=== PATIENT | female | born 1950 | race African-American/Black ===

== ENCOUNTER 2017-01-02 06:39 | Day surgery (SDC) | payer MEDICARE, OTHER ==
[~2017-01-02] VITALS: Ht 147.3 cm; Wt 54.5 kg
[~2017-01-02 06:39] MED LIST: CEPH500 PO; ESCI10TA PO; IBUP-1547 PO; LISI-618 PO; SODIUM CHLORIDE 0.9% 1,000 ML IV ONE; ZOLP5 PO
[2017-01-02] MEDS ORDERED: LIDOCAINE HCL 4% 50 ML SOLUTION TP ONE (06:40)
[2017-01-02] MEDS ORDERED: BENZOCAINE 20% 50 MCG/SPRAY 57 GM TP ONE (06:40)
[2017-01-02] MEDS ORDERED: ALBUTEROL SULFATE 2.5 MG/0.5 ML NEB SOLUTION NEB ONE (06:40)
[2017-01-02] MEDS ORDERED: LIDOCAINE HCL 2% 30 ML JELLY TP ONE (06:40)
[2017-01-02] MEDS ORDERED: SODIUM CHLORIDE 0.9% 1,000 ML IV ONE (06:47)
[2017-01-02] MEDS ORDERED: CLON.1 PO (07:28)
[2017-01-02] MEDS ORDERED: FentaNYL CITRATE-PF 100 MCG/2 ML VIAL ONE (07:41)
[2017-01-02] MEDS ORDERED: MIDAZOLAM HCL 2 MG/2 ML VIAL ONE (07:41)
[2017-01-02] MEDS ORDERED: MethylPREDNISolone SOD SUCC 125 MG/2 ML VIAL IVP ONE (09:15)
[2017-01-02] MEDS ORDERED: MethylPREDNISolone SOD SUCC 125 MG/2 ML VIAL ONE (09:29)
[2017-01-02] MEDS ORDERED: OXYGEN THERAPY IH SCH (20:00)
== END 2017-01-02 10:40 | disposition home or self-care (01) ==
LOC: SURGERY 06:39
PROVIDERS: ATTEND Internal Medicine Critical Care Medicine
DX: J84.9 Interstitial pulmonary disease, unspecified (principal); J38.4 Edema of larynx; R51 Headache; F41.9 Anxiety disorder, unspecified
CPT/HCPCS: 31623; 31624; 71010; 87015 ×2; 87070; 87101; 87205; 87220; 88108; 88312; 94640; J2250; J2930; J3010; J7030

== ENCOUNTER 2018-06-08 02:57 | Emergency (ER) | payer MEDICARE, OTHER ==
[~2018-06-08] VITALS: Ht 149.9 cm; Wt 55.5 kg
[~2018-06-08 02:57] MED LIST changes: -CEPH500 PO; +CLON-570 PO; -ESCI10TA PO; -IBUP-1547 PO; -LISI-618 PO; -SODIUM CHLORIDE 0.9% 1,000 ML IV ONE; -ZOLP5 PO
[2018-06-08] MEDS ORDERED: CLON.2 PO (03:17)
[2018-06-08] MEDS ORDERED: LISI40TA4 PO (03:17)
[2018-06-08] MEDS ORDERED: KETOROLAC TROMETHAMINE 60 MG/2 ML VIAL IM ONE (04:30)
[2018-06-08] MEDS ORDERED: METHOCARBAMOL 750 MG TABLET PO ONE (04:30)
[2018-06-08 05:45] VITALS: BP 194/91
== END 2018-06-08 07:14 | disposition home or self-care (01) ==
LOC: EMS 02:59
DX: S13.4XXA Sprain of ligaments of cervical spine, initial encounter (principal); S33.5XXA Sprain of ligaments of lumbar spine, initial encounter; I10 Essential (primary) hypertension; F11.90 Opioid use, unspecified, uncomplicated; F17.210 Nicotine dependence, cigarettes, uncomplicated; Z79.899 Other long term (current) drug therapy; V43.62XA Car passenger injured in collision with other type car in traffic accident, initial encounter; Y93.89 Activity, other specified; Y92.89 Other specified places as the place of occurrence of the external cause; Y99.8 Other external cause status
CPT/HCPCS: 72040; 72070; 72100; 96372; 99283; 99406; J1885

== ENCOUNTER 2018-08-03 00:47 | Emergency (ER) | payer MEDICARE, OTHER ==
[~2018-08-03] VITALS: Ht 149.9 cm; Wt 55.5 kg
[~2018-08-03 00:47] MED LIST changes: -CLON-570 PO; +CLON.2 PO; +LISI40TA4 PO
[2018-08-03 01:23] VITALS: BP 161/111
[2018-08-03] MEDS ORDERED: ALBUTEROL SULFATE 2.5 MG/0.5 ML NEB SOLUTION NEB ONE (02:15)
[2018-08-03] MEDS ORDERED: IPRATROPIUM BROMIDE 0.5 MG/2.5 ML NEB SOLUTION NEB ONE (02:15)
[2018-08-03 03:02] LABS: BASOPHILS % (AUTO) 0.9 % (0.0-2.0); EOSINOPHILS % (AUTO) 4.3 % (1.0-6.0); HEMATOCRIT 37.9 % (36-46); HEMOGLOBIN 12.4 g/dL (12.0-16.0); LYMPHOCYTES # (AUTO) 2.3 K/uL (1.0-4.8); LYMPHOCYTES % (AUTO) 27.3 % (22.0-44.0); MEAN CORPUSCULAR HEMOGLOBIN 25.7 pg (26.0-34.0); MEAN CORPUSCULAR HGB CONC 32.8 G/dL (31.0-37.0); MEAN CORPUSCULAR VOLUME 78 fL (80-100); MONOCYTES # (AUTO) 0.4 K/uL (0.1-1.0); MONOCYTES % (AUTO) 5.3 % (2.0-9.0); NEUTROPHILS # (AUTO) 5.3 K/uL (1.8-7.7); NEUTROPHILS % (AUTO) 62.2 % (40.0-70.0); PLATELET COUNT (AUTO) 198 K/uL (150-450); RED BLOOD CELL COUNT(AUTO) 4.84 MIL/uL (4.00-5.20)
[2018-08-03 03:06] LABS: ANION GAP 11 mmol/L (8-16); CALCIUM, TOTAL 8.8 mg/dL (8.8-10.5); CARBON DIOXIDE 27 mmol/L (22-29); CHLORIDE 106 mmol/L (98-107); CREATININE 1.06 mg/dL (0.60-1.30); GLOMERULAR FILTR. RATE CALC > 60 mL/min (>60); GLUCOSE,RANDOM 125 mg/dL (70-110); POTASSIUM 3.5 mmol/L (3.5-5.1); SODIUM SERUM 144 mmol/L (136-145); UREA NITROGEN, BLOOD 13 mg/dL (7-18)
[2018-08-03 03:12] LABS: ALANINE AMINOTRANSFERASE 13 U/L (12-78); ALBUMIN 3.5 g/dL (3.4-5.0); ALKALINE PHOSPHATASE 114 U/L (46-116); ASPARTATE AMINOTRANSFERASE 15 U/L (15-37); BILIRUBIN,TOTAL 0.3 mg/dL (0.1-1.0); CREATINE KINASE, TOTAL ONLY 65 U/L (26-192); TOTAL PROTEIN, SERUM 6.8 g/dL (6.4-8.2)
[2018-08-03] MEDS ORDERED: LEVOFLOXACIN 250 MG TABLET PO ONE (03:30)
[2018-08-03 03:36] LABS: B-TYPE NATRIURETIC PEPTIDE 46 pg/mL (0-100)
== END 2018-08-03 03:44 | disposition home or self-care (01) ==
LOC: EMS 00:48
DX: J18.9 Pneumonia, unspecified organism (principal); I10 Essential (primary) hypertension; F17.210 Nicotine dependence, cigarettes, uncomplicated; F11.90 Opioid use, unspecified, uncomplicated; Z79.899 Other long term (current) drug therapy
CPT/HCPCS: 93005; 94640

== ENCOUNTER 2022-06-13 22:23 | Emergency (ER) | payer MEDICARE, OTHER ==
[~2022-06-13] VITALS: Ht 149.9 cm; Wt 54.5 kg
[~2022-06-13 22:23] MED LIST changes: -CLON.2 PO; +CLON0.2T2 PO; -LISI40TA4 PO; +LISI40TA9 PO
[2022-06-13] MEDS ORDERED: IPRATROPIUM BROMIDE 0.5 MG/2.5 ML NEB SOLUTION NEB ONE (22:30)
[2022-06-13] MEDS ORDERED: ALBUTEROL SULFATE 2.5 MG/0.5 ML NEB SOLUTION NEB ONE (22:30)
[2022-06-13] MEDS ORDERED: MethylPREDNISolone SOD SUCC 125 MG/2 ML VIAL IVP ONE (22:45)
[2022-06-13 22:46] LABS: COVID AG,FIA SOURCE NASOPHARYNGEAL
[2022-06-13 23:05] LABS: ABG BASE EXCESS -0.3 mmol/L (-2.0-3.0); ABG CARBOXYHEMOGLOBIN 2.3 % (0.0-1.5); ABG HCO3 24.1 mmol/L (22.0-26.0); ABG METHEMOGLOBIN 0.3 % (0.0-1.5); ABG OXYGEN CONTENT 16.5 mL/dL (15.0-23.0); ABG OXYGEN SATURATION 93.2 % (95.0-98.0); ABG OXYHEMOGLOBIN 90.8 % (94.0-100.0); ABG PCO2 43 mmHg (35-45); ABG PH 7.383 (7.35-7.450); ABG TOTAL HEMOGLOBIN 12.9 G/dL (12.0-18.0); PO2, ARTERIAL BG 72.3 mmHg (75.0-83.0); SOURCE, BLOOD GAS ARTERIAL; TEMPERATURE, FAHRENHEIT, BG 98.6 FAHREN (96.0-98.6)
[2022-06-13 23:07] LABS: SITE, BLOOD GAS RT RADIAL
[2022-06-13 23:11] LABS: INFLUENZA TYPE A NEGATIVE FOR TYPE A (NEGATIVE); INFLUENZA TYPE B NEGATIVE FOR TYPE B (NEGATIVE)
[2022-06-13 23:26] LABS: HEMOGLOBIN 12.2 g/dL (12.0-16.0)
[2022-06-13 23:30] LABS: BASOPHILS % (AUTO) 0.9 % (0.0-2.0); EOSINOPHILS % (AUTO) 5.7 % (1.0-6.0); LYMPHOCYTES # (AUTO) 1.6 K/uL (1.0-4.8); LYMPHOCYTES % (AUTO) 20.1 % (22.0-44.0); MEAN CORPUSCULAR HEMOGLOBIN 25.3 pg (26.0-34.0); MEAN CORPUSCULAR HGB CONC 32.1 G/dL (31.0-37.0); MEAN CORPUSCULAR VOLUME 79 fL (80-100); MONOCYTES # (AUTO) 0.4 K/uL (0.1-1.0); MONOCYTES % (AUTO) 5.3 % (2.0-9.0); NEUTROPHILS # (AUTO) 5.5 K/uL (1.8-7.7); PLATELET COUNT (AUTO) 89 K/uL (150-450); RED BLOOD CELL COUNT(AUTO) 4.82 MIL/uL (4.00-5.20); RED CELL DISTRIBUTION WIDTH 15.7 % (11.5-14.5)
[2022-06-13 23:44] LABS: ANION GAP 8 mmol/L (8-16); CALCIUM, TOTAL 8.5 mg/dL (8.8-10.5); CARBON DIOXIDE 29 mmol/L (22-29); CHLORIDE 107 mmol/L (98-107); CREATININE 1.06 mg/dL (0.60-1.30); GLOMERULAR FILTR. RATE CALC > 60 mL/min (>60); GLUCOSE,RANDOM 138 mg/dL (70-110); SODIUM SERUM 144 mmol/L (136-145); UREA NITROGEN, BLOOD 20 mg/dL (7-18)
[2022-06-14] LABS: B-TYPE NATRIURETIC PEPTIDE 176 pg/mL (0-100)
[2022-06-14 00:09] LABS: ALANINE AMINOTRANSFERASE 26 U/L (12-78); ALBUMIN 3.4 g/dL (3.4-5.0); ALKALINE PHOSPHATASE 132 U/L (46-116); ASPARTATE AMINOTRANSFERASE 39 U/L (15-37); BILIRUBIN,TOTAL 0.3 mg/dL (0.1-1.0); CREATINE KINASE, TOTAL ONLY 128 U/L (26-192); TOTAL PROTEIN, SERUM 7.2 g/dL (6.4-8.2)
[2022-06-14] MEDS ORDERED: AZITHROMYCIN 500 MG TABLET PO ONE (00:15)
[2022-06-14 00:38] VITALS: BP 158/77
[2022-06-14] MEDS ORDERED: AZIT-84 PO (01:07)
[2022-06-14] MEDS ORDERED: PRED-554 PO (01:07)
[2022-06-14] MEDS ORDERED: ALBUTEROL SULFATE HFA 90 MCG/PUFF 8 GM INHALER IH ONE (01:15)
== END 2022-06-14 01:30 | disposition home or self-care (01) ==
LOC: EMS 22:24
DX: J44.9 Chronic obstructive pulmonary disease, unspecified (principal); J18.9 Pneumonia, unspecified organism; I10 Essential (primary) hypertension; F17.210 Nicotine dependence, cigarettes, uncomplicated; R07.89 Other chest pain; Z20.822 Contact with and (suspected) exposure to COVID-19; Z98.890 Other specified postprocedural states
CPT/HCPCS: 99285; 94060; 96374; 71045; 87426; 80053; 82550; 83880; 84484; 85025; 87804; 36415; 82805; 36600; 93005; 94640; J2930; Q9967; J3535; J7613

== ENCOUNTER 2022-07-20 19:03 | Emergency (ER) | payer MEDICARE, OTHER ==
[~2022-07-20] VITALS: Ht 149.9 cm; Wt 54.5 kg
[~2022-07-20 19:03] MED LIST changes: +AZIT-103 PO; +PRED-554 PO
[2022-07-20 21:18] VITALS: BP 153/67
[2022-07-20] MEDS ORDERED: LIDOCAINE 1% 10 ML VIAL SQ ONE (22:30)
[2022-07-20] MEDS ORDERED: CEPH-558 PO (22:39)
[2022-07-20] MEDS ORDERED: CEPHALEXIN MONOHYDRATE 500 MG CAPSULE PO ONE (22:45)
== END 2022-07-20 22:53 | disposition home or self-care (01) ==
LOC: EMS 19:06
DX: L02.31 Cutaneous abscess of buttock (principal); J44.9 Chronic obstructive pulmonary disease, unspecified; I10 Essential (primary) hypertension; F17.210 Nicotine dependence, cigarettes, uncomplicated
CPT/HCPCS: 99283; 10060; J3490

== ENCOUNTER 2023-04-27 16:13 | Emergency (ER) | payer MEDICARE, OTHER ==
[~2023-04-27] VITALS: Ht 149.9 cm; Wt 52.7 kg
[~2023-04-27 16:13] MED LIST changes: +CEPH-558 PO
[2023-04-27 16:57] VITALS: BP 133/61; PULSE 69; RESP 16; TEMP 98
[2023-04-27] MEDS ORDERED: BACTDSB PO ×2 (22:40→23:29)
[2023-04-27] MEDS ORDERED: CEPH-558 PO ×2 (22:40→23:29)
== END 2023-04-27 22:55 | disposition home or self-care (01) ==
LOC: EMS 16:15
DX: L02.414 Cutaneous abscess of left upper limb (principal); J44.9 Chronic obstructive pulmonary disease, unspecified; I10 Essential (primary) hypertension
CPT/HCPCS: 10060; 99283